=== PATIENT | female | born 1965 | race Native Hawaiian/Other Pacific Islander ===

== ENCOUNTER → 2018-02-04 | Day surgery (SDC) | payer OTHER ==
--- NOTE | 2018-02-04 23:10 | VASCLAB ---
DATE: 02/04/2018 INDUSTRIAL ELECTRICAL ENGINEER: Aiden Dobson MD REFERRED PHYSICIAN: Aiden Dobson MD PROCEDURE: Tilt table test. INDICATION: Recurrent dizziness. PROCEDURE IN DETAIL: The patient was put on the tilt table and was tilted. Heart rate and blood pressure response were monitored every 3 minutes at 30 degrees for 5 minutes and 60 degrees for 15 minutes. The patient tolerated the procedure well. The patient was totally asymptomatic throughout the test. IMPRESSION: Appropriate heart rate and blood pressure response to tilt table test. The patient was asymptomatic throughout the test. Aiden Dobson MD
== END | disposition home or self-care (01) ==
LOC: C.CATHLAB 07:21
PROVIDERS: ATTEND Internal Medicine
DX: R42 Dizziness and giddiness (principal)